=== PATIENT | male | born 1990 | race Caucasian/White ===

== ENCOUNTER 2016-12-29 13:02 | Emergency (ER) | payer MEDICAID ==
[~2016-12-29] VITALS: Ht 177.8 cm; Wt 78.0 kg
[2016-12-29] MEDS ORDERED: [UNRECOGNIZED DRUG - CODE] PO (13:06)
[2016-12-29 13:30] LABS: BASOPHILS % (AUTO) 0.7 % (0.0-2.0); EOSINOPHILS % (AUTO) 0.8 % (1.0-6.0); HEMATOCRIT 46.2 % (41-53); HEMOGLOBIN 15.5 g/dL (13.5-17.5); LYMPHOCYTES # (AUTO) 1.7 K/uL (1.0-4.8); LYMPHOCYTES % (AUTO) 36.9 % (22.0-44.0); MEAN CORPUSCULAR HEMOGLOBIN 30.4 pg (26.0-34.0); MEAN CORPUSCULAR HGB CONC 33.6 G/dL (31.0-37.0); MEAN CORPUSCULAR VOLUME 91 fL (80-100); MONOCYTES # (AUTO) 0.5 K/uL (0.1-1.0); MONOCYTES % (AUTO) 11.3 % (2.0-9.0); NEUTROPHILS # (AUTO) 2.4 K/uL (1.8-7.7); NEUTROPHILS % (AUTO) 50.3 % (40.0-70.0); PLATELET COUNT (AUTO) 220 K/uL (150-450); RED CELL DISTRIBUTION WIDTH 13.6 % (11.5-14.5); WHITE BLOOD COUNT (AUTO) 4.7 K/uL (4.5-11.0)
[2016-12-29 13:42] LABS: ANION GAP 12 mmol/L (8-16); CALCIUM, TOTAL 8.7 mg/dL (8.8-10.5); CARBON DIOXIDE 25 mmol/L (22-29); CHLORIDE 101 mmol/L (98-107); CREATININE 0.88 mg/dL (0.60-1.30); GLOMERULAR FILTR. RATE CALC > 60 mL/min (>60); POTASSIUM 3.3 mmol/L (3.5-5.1); SODIUM SERUM 138 mmol/L (136-145); UREA NITROGEN, BLOOD 8 mg/dL (7-18)
[2016-12-29 13:47] LABS: ALANINE AMINOTRANSFERASE 34 U/L (12-78); ASPARTATE AMINOTRANSFERASE 17 U/L (15-37); BILIRUBIN,TOTAL 0.3 mg/dL (0.1-1.0); TOTAL PROTEIN, SERUM 7.8 g/dL (6.4-8.2)
[2016-12-29 15:24] VITALS: BP 136/86
[2016-12-29] MEDS ORDERED: LORazepam 2 MG TABLET PO ONE (15:30)
== END 2016-12-29 17:46 | disposition home or self-care (01) ==
LOC: EMS 13:03 → EEVIPCON 13:03 → EMS 17:46
DX: F41.9 Anxiety disorder, unspecified (principal); F17.210 Nicotine dependence, cigarettes, uncomplicated
CPT/HCPCS: 80053; 85025; 99284; G0480

== ENCOUNTER 2017-01-08 14:56 | Inpatient (IN) | payer SELFPAY ==
[~2017-01-08] VITALS: Ht 176.5 cm; Wt 76.9 kg
[~2017-01-08 14:56] MED LIST: [UNRECOGNIZED DRUG - CODE] PO
[2017-01-08 20:58] LABS: BASOPHILS % (AUTO) 0.5 % (0.0-2.0); EOSINOPHILS % (AUTO) 0.8 % (1.0-6.0); HEMATOCRIT 48.7 % (41-53); HEMOGLOBIN 16.4 g/dL (13.5-17.5); LYMPHOCYTES # (AUTO) 1.8 K/uL (1.0-4.8); LYMPHOCYTES % (AUTO) 34.3 % (22.0-44.0); MEAN CORPUSCULAR HEMOGLOBIN 30.7 pg (26.0-34.0); MEAN CORPUSCULAR HGB CONC 33.7 G/dL (31.0-37.0); MEAN CORPUSCULAR VOLUME 91 fL (80-100); MONOCYTES # (AUTO) 0.4 K/uL (0.1-1.0); MONOCYTES % (AUTO) 7.6 % (2.0-9.0); NEUTROPHILS % (AUTO) 56.8 % (40.0-70.0); PLATELET COUNT (AUTO) 226 K/uL (150-450); RED BLOOD CELL COUNT(AUTO) 5.35 MIL/uL (4.50-5.90); RED CELL DISTRIBUTION WIDTH 13.4 % (11.5-14.5); WHITE BLOOD COUNT (AUTO) 5.3 K/uL (4.5-11.0)
[2017-01-08 21:07] LABS: ANION GAP 12 mmol/L (8-16); CALCIUM, TOTAL 9.2 mg/dL (8.8-10.5); CARBON DIOXIDE 26 mmol/L (22-29); CHLORIDE 102 mmol/L (98-107); CREATININE 1.02 mg/dL (0.60-1.30); GLOMERULAR FILTR. RATE CALC > 60 mL/min (>60); POTASSIUM 3.4 mmol/L (3.5-5.1); SODIUM SERUM 140 mmol/L (136-145); UREA NITROGEN, BLOOD 11 mg/dL (7-18)
[2017-01-08] MEDS ORDERED: CITA20TA9 PO (21:12)
[2017-01-08 21:13] LABS: ALANINE AMINOTRANSFERASE 25 U/L (12-78); ALBUMIN 3.9 g/dL (3.4-5.0); ASPARTATE AMINOTRANSFERASE 10 U/L (15-37); BILIRUBIN,TOTAL 0.4 mg/dL (0.1-1.0)
[2017-01-08] MEDS ORDERED: HALOPERIDOL LACTATE 5 MG/ML VIAL IM ONE (21:45)
[2017-01-08] MEDS ORDERED: LORazepam 2 MG/ML VIAL IM ONE (21:45)
[2017-01-08] MEDS ORDERED: HALOPERIDOL 5 MG TABLET PO PRN (22:00)
[2017-01-08] MEDS ORDERED: ZOLPIDEM TARTRATE 10 MG TABLET PO PRN (22:00)
[2017-01-09 01:42] VITALS: BP 130/74
[2017-01-09 08:00] VITALS: BP 124/63
[2017-01-09] MEDS: LORazepam 2 MG TABLET PO PRN ×2 (10:42→20:19)
[2017-01-09] MEDS ORDERED: IBUPROFEN 400 MG TABLET PO PRN (19:30)
[2017-01-09] MEDS ORDERED: ACETAMINOPHEN 325 MG TABLET PO PRN (19:30)
[2017-01-09 21:39] VITALS: BP 114/61
[2017-01-10 07:40] LABS: CHOL/HDL RATIO 3.1 (4.2-7.3); HEMOGLOBIN A1C 5.3 % (4.5-6.2); THYROID STIMULATING HORMONE 1.46 uIU/mL (0.36-3.74)
[2017-01-10 08:00] VITALS: BP 135/76
[2017-01-10] MEDS ORDERED: CITALOPRAM HYDROBROMIDE 20 MG TABLET PO SCH (09:00)
[2017-01-10] MEDS: LORazepam 2 MG TABLET PO PRN (09:20)
== END 2017-01-10 15:30 | disposition home or self-care (01) | DRG 881 ==
LOC: EMS 14:57 → 3EI 22:24
PROVIDERS: ADMIT Psychiatry & Neurology Psychiatry; ATTEND Psychiatry & Neurology Psychiatry
DX: F32.9 Major depressive disorder, single episode, unspecified (principal); F29 Unspecified psychosis not due to a substance or known physiological condition; F17.210 Nicotine dependence, cigarettes, uncomplicated; E87.6 Hypokalemia; R73.9 Hyperglycemia, unspecified; Z79.899 Other long term (current) drug therapy
CPT/HCPCS: 83036; 84443; 96372; 99285; G0480; J1630; J2060

== ENCOUNTER 2018-08-03 15:31 | Emergency (ER) | payer MEDICAID ==
[~2018-08-03] VITALS: Ht 172.7 cm; Wt 72.7 kg
[~2018-08-03 15:31] MED LIST changes: +CITA-106 PO; -[UNRECOGNIZED DRUG - CODE] PO
[2018-08-03] MEDS ORDERED: BACITRACIN 0.9 GM PACKET OINTMENT TP ONE (18:30)
[2018-08-03] MEDS ORDERED: ACETAMINOPHEN 500 MG TABLET PO ONE (18:30)
[2018-08-03] MEDS ORDERED: PERTUSS(ACELL),DIPH,TET VAC/PF 0.5 ML VIAL IM ONE (18:30)
[2018-08-03 18:55] VITALS: BP 135/73
== END 2018-08-03 19:01 | disposition home or self-care (01) ==
LOC: EMS 15:32
DX: S61.512A Laceration without foreign body of left wrist, initial encounter (principal); F32.9 Major depressive disorder, single episode, unspecified; F17.210 Nicotine dependence, cigarettes, uncomplicated; W01.118A Fall on same level from slipping, tripping and stumbling with subsequent striking against other sharp object, initial encounter; Y93.89 Activity, other specified; Y92.89 Other specified places as the place of occurrence of the external cause; Y99.8 Other external cause status
CPT/HCPCS: 90471; 90715; 99283; 99406

== ENCOUNTER 2021-07-23 03:21 | Emergency (ER) | payer MEDICAID ==
[~2021-07-23] VITALS: Ht 172.7 cm; Wt 85.0 kg
[2021-07-23 06:30] VITALS: BP 128/76
== END 2021-07-23 06:30 | disposition home or self-care (01) ==
LOC: EMS 03:23
DX: L30.9 Dermatitis, unspecified (principal); F32.9 Major depressive disorder, single episode, unspecified; F17.210 Nicotine dependence, cigarettes, uncomplicated
CPT/HCPCS: 99282; Z7502